=== PATIENT | male | born 1965 | race Caucasian/White ===

== ENCOUNTER 2017-04-14 14:23 | Emergency (ER) | payer OTHER ==
[~2017-04-14] VITALS: Ht 182.9 cm; Wt 96.0 kg
[2017-04-14 14:34] VITALS: BP 111/78; PULSE 98; RESP 18; TEMP 97.7; O2SAT 98
[2017-04-14] MEDS ORDERED: XANA1TAB2 PO (14:42)
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
[2017-04-14 17:30] VITALS: BP 130/76; TEMP 97.8
== END 2017-04-14 17:30 | disposition home or self-care (01) ==
LOC: NEPC 14:23
DX: S00.81XA Abrasion of other part of head, initial encounter (principal); S00.31XA Abrasion of nose, initial encounter; S00.511A Abrasion of lip, initial encounter; M25.531 Pain in right wrist; V28.4XXA Motorcycle driver injured in noncollision transport accident in traffic accident, initial encounter; Y92.410 Unspecified street and highway as the place of occurrence of the external cause
CPT/HCPCS: 70450; 70486; 71010; 72125; 72170; 73110; 99285